=== PATIENT | female | born 1955 ===

== ENCOUNTER 2022-11-24 06:00 | Day surgery (SDC) | payer OTHER ==
[~2022-11-24] VITALS: Ht 165.1 cm; Wt 90.3 kg
[2022-11-24] MEDS ORDERED: NAPR500T14 PO (12:49)
[2022-11-24] MEDS ORDERED: MORGIDOX100 MG PO (12:49)
== END 2022-11-24 17:25 | disposition home or self-care (01) ==
LOC: CIR.AMB 06:00
PROVIDERS: ATTEND Obstetrics & Gynecology
DX: N95.0 Postmenopausal bleeding (principal); N84.0 Polyp of corpus uteri; D25.0 Submucous leiomyoma of uterus; N88.2 Stricture and stenosis of cervix uteri; Z20.822 Contact with and (suspected) exposure to COVID-19